=== PATIENT | male | born 1970 | race Caucasian/White ===

== ENCOUNTER 2022-07-31 01:51 | Emergency (ER) | payer OTHER ==
[2022-07-31] MEDS ORDERED: Sodium Chloride 0.9% 10 ML Syringe FLUSH PRN (02:27)
[2022-07-31 02:41] VITALS: BP 117/93; PULSE 94
[2022-07-31 03:26] LABS: CORONAVIRUS COVID-19 NAA POSITIVE (NEGATIVE)
== END 2022-07-31 05:01 | disposition home or self-care (01) ==
LOC: JD.ED 01:51
DX: U07.1 COVID-19 (principal); J44.9 Chronic obstructive pulmonary disease, unspecified; Z86.16 Personal history of COVID-19
CPT/HCPCS: 0240U; 36415; 71045; 71045-26; 80053; 85007; 85027; 85379; 86140; 87040; 93005; 99284